=== PATIENT | female | born 1975 | race African-American/Black ===

== ENCOUNTER 2016-08-26 18:51 | Emergency (ER) | payer OTHER ==
[~2016-08-26] VITALS: Ht 157.5 cm; Wt 73.5 kg
--- NOTE | ~2016-08-26 | S ---
[facility] [address] [place] [address] SURGICAL PATH RPT PROCEDURE Name: KHADIJAH VELAZQUEZ Room #: DEP TENA Elena#: [id number] Admission: 08/26/16 Date of : 73 Discharge: 08/26/16 Report #: [id number] Path Case #: [id number] PATHOLOGY REPORT COLLECTION DATE: 08/26/2016 RECEIVED DATE: 08/27/2016 SUBMITTING PHYS: Dr. Carmel Ballesteros OTHER PHYS: SPECIMEN(S) RECEIVED: A.Products of conception * * * * * * * * * * * * FINAL DIAGNOSIS: Products of conception: - Hydropic immature chorionic villi in a background of fragments of decidualized tissue, consistent with products of conception. (IUV:csd; d/t: 08/28/2016) PATHOLOGIST: Jane David M.D. REPORT ELECTRONICALLY SIGNED BY: Jane David M.D. DATE/TIME: 08/28/2016 16:08 * * * * * * * * * * * * GROSS PATHOLOGY: The specimen is received in formalin labeled "Khadijah Velazquez," and additionally labeled on the requisition as, "possible products of conception". Received is a segment of dusky pink-patel to red-brown soft tissue measuring 4.3 x 2.8 x 2.5 cm in greatest dimensions. Spongiform tissue is not grossly distinct. or embryonic tissue is not grossly identified. The specimen is submitted representatively in cassettes A1 through A3. (CAA; 08/27/2016) CLINICAL HISTORY: Vaginal bleeding, assess for possible products of conception INITIAL CPT CODE(S): A; 63174 Professional services performed by [facility] at [facility] [address], [place] [address] Technical services performed by [facility] at [address] [place] [id number]. [facility] [address] [place] [address] SURGICAL PATH RPT PROCEDURE Name: KHADIJAH VELAZQUEZ Room #: DEP TENA Elena#: [id number] Admission: 08/26/16 Date of : 73 Discharge: 08/26/16 Report #: [id number] Path Case #: [id number] [facility] [address] [address] PHONE: [phone] DIRECTOR: Baldev Santoyo M.D. * * * END OF REPORT * * *
[~2016-08-26 18:51] MED LIST: ACYCLOVIR 200200 MG PO; ALDOMET250 MG PO; IRON325 PO; NORCO 5-325 TA1 EACH PO; PROVENTIL HFA6.7 G1 INH; PROZAC20 MG PO; TRINATE TABLET1 TAB PO; ZESTRIL10 MG
[2016-08-26 19:25] LABS: ABSOLUTE NEUTROPHILS 5.1 thou/uL (1.4-8.2); BASOPHILS 0.7 % (0.0-2.0); EOSINOPHILS 1.1 % (0.0-3.0); HEMATOCRIT 35.4 % (37.0-47.0); LYMPHOCYTES 28.2 % (24.0-44.0); MCHC 33.8 g/dL (28.0-37.0); MCV 85.6 fL (80.0-100.0); MONOCYTES 5.9 % (1.0-8.0); PLATELET COUNT 172 thou/uL (150-400); POLYS 64.1 % (36.0-66.0); RBC 4.13 mil/uL (4.20-5.00); RDW 14.3 % (10.5-14.5)
[2016-08-26 19:27] LABS: MANUAL DIFF NO
[2016-08-26 19:36] LABS: CALCIUM 8.9 mg/dL (8.5-10.1); CREATININE 0.7 mg/dL (0.6-1.0); POTASSIUM 3.5 mmol/L (3.5-5.1)
[2016-08-26 20:59] VITALS: BP 115/85
== END 2016-08-26 21:00 | disposition home or self-care (01) ==
LOC: ER 18:51
PROVIDERS: Emergency Medicine
DX: O20.0 Threatened abortion (principal); I10 Essential (primary) hypertension; Z3A.01 Less than 8 weeks gestation of pregnancy

== ENCOUNTER 2016-10-15 23:43 | Emergency (ER) | payer OTHER ==
[~2016-10-15] VITALS: Ht 157.5 cm; Wt 65.8 kg
[2016-10-16] MEDS ORDERED: XANAX 0.5 MG0.5 MG PO (00:33)
[2016-10-16] MEDS ORDERED: ALDOMET250 MG PO (00:34)
[2016-10-16] MEDS ORDERED: CELEXA10 MG PO (00:35)
[2016-10-16 02:14] VITALS: BP 117/72
== END 2016-10-16 02:15 | disposition home or self-care (01) ==
LOC: ER 23:43
DX: F41.0 Panic disorder [episodic paroxysmal anxiety] (principal); F32.9 Major depressive disorder, single episode, unspecified; F43.20 Adjustment disorder, unspecified; I10 Essential (primary) hypertension; F17.210 Nicotine dependence, cigarettes, uncomplicated

== ENCOUNTER 2016-11-20 10:22 | Emergency (ER) | payer OTHER ==
[~2016-11-20] VITALS: Ht 160 cm; Wt 60.3 kg
--- NOTE | ~2016-11-20 | EKG ---
[place] [address] [facility] [place] [address] ELECTROCARDIOGRAM REPORT Name: LILIAM KING Room #: DEP Kassy#: [id number] Admission: 11/20/16 Attend Phys: Discharge: 11/20/16 Date of : 73 Report #: [id number] THIS REPORT FOR: //name// [facility] ED Test Date: 2016-11-20 Test Time: 10:49:08 Pat Name: LILIAM KING Department: Room: Gender: F Medical Interpreter: Ethan PALACIOS : 1975 Requested By: Jose Ramon Varela Order Number: [id number] MD: Ruperto Bashir Measurements Intervals [place] Rate: 71 P: 66 SC: 135 QRS: 16 QRSD: 86 T: 12 QT: 390 QTc: 424 Interpretive Statements Sinus rhythm Probable left atrial enlargement Compared to ECG 01/22/2015 07:43:41 No significant changes Electronically Signed On 11-23-2016 21:57:58 CDT by Ruperto Bashir [email or web address] <ELECTRONICALLY SIGNED> By: Ruperto Bashir MD 11/23/16 2157 1049 1049 Ruperto Bashir MD /NHUNG
[~2016-11-20 10:22] MED LIST changes: +CELEXA10 MG PO; +XANAX 0.5 MG0.5 MG PO
[2016-11-20 10:53] LABS: URINE BILIRUBIN NEGATIVE (Negative); URINE BLOOD NEGATIVE (Negative); URINE COLOR YELLOW; URINE GLUCOSE-RANDOM* NEGATIVE (Negative); URINE KETONES NEGATIVE (Negative); URINE NITRITE NEGATIVE (Negative); URINE PROTEIN (DIPSTICK) NEGATIVE (Negative); URINE SPECIFIC GRAVITY 1.025 (1.003-1.035)
[2016-11-20] MEDS ORDERED: SEROQUEL 25 MG25 M1 PO (11:09)
[2016-11-20 11:13] LABS: ABSOLUTE NEUTROPHILS 4.9 thou/uL (1.4-8.2); BASOPHILS 0.6 % (0.0-2.0); EOSINOPHILS 0.6 % (0.0-3.0); HEMATOCRIT 35.8 % (37.0-47.0); LYMPHOCYTES 24.4 % (24.0-44.0); MCHC 33.5 g/dL (28.0-37.0); MCV 86.5 fL (80.0-100.0); MONOCYTES 4.3 % (1.0-8.0); PLATELET COUNT 173 thou/uL (150-400); POLYS 70.1 % (36.0-66.0); RBC 4.14 mil/uL (4.20-5.00); RDW 14.1 % (10.5-14.5)
[2016-11-20 11:14] LABS: MANUAL DIFF NO
[2016-11-20 11:15] VITALS: BP 123/83
[2016-11-20 11:20] LABS: ANION GAP 7 mmol/L (7-16); BUN 14 mg/dL (7-18); CALCIUM 9.2 mg/dL (8.5-10.1); CHLORIDE 108 mmol/L (98-107); CO2 29 mmol/L (21-32); CREATININE 0.8 mg/dL (0.6-1.0); GLUCOSE 86 mg/dL (74-106); POTASSIUM 3.8 mmol/L (3.5-5.1); SODIUM 144 mmol/L (136-145)
[2016-11-20 11:28] LABS: TROPONIN-I < 0.04 ng/mL (<0.04-0.07)
== END 2016-11-20 11:35 | disposition home or self-care (01) ==
LOC: ER 10:22
PROVIDERS: Nurse Practitioner
DX: R53.1 Weakness (principal); F41.9 Anxiety disorder, unspecified; I10 Essential (primary) hypertension; F17.210 Nicotine dependence, cigarettes, uncomplicated; F10.99 Alcohol use, unspecified with unspecified alcohol-induced disorder; Z98.890 Other specified postprocedural states

== ENCOUNTER 2017-06-01 11:11 | Emergency (ER) | payer OTHER ==
[~2017-06-01] VITALS: Ht 190.5 cm; Wt 59.0 kg
[~2017-06-01 11:11] MED LIST changes: +SEROQUEL 25 MG25 M1 PO
[2017-06-01 11:49] VITALS: BP 121/84
== END 2017-06-01 11:50 | disposition home or self-care (01) ==
LOC: ER 11:11
DX: R51 Headache (principal); F41.9 Anxiety disorder, unspecified; I10 Essential (primary) hypertension; F17.210 Nicotine dependence, cigarettes, uncomplicated

== ENCOUNTER 2017-07-01 10:34 | Emergency (ER) | payer OTHER ==
[~2017-07-01] VITALS: Ht 160 cm; Wt 56.7 kg
[2017-07-01 11:27] LABS: CALCIUM 8.8 mg/dL (8.5-10.1); CREATININE 0.7 mg/dL (0.6-1.0); POTASSIUM 3.5 mmol/L (3.5-5.1)
[2017-07-01 12:43] VITALS: BP 108/73
[2017-07-01] MEDS ORDERED: REGLAN 10 MG TA10 MG PO (12:43)
== END 2017-07-01 12:55 | disposition home or self-care (01) ==
LOC: ER 10:34
PROVIDERS: Emergency Medicine
DX: O26.891 Other specified pregnancy related conditions, first trimester (principal); Z3A.00 Weeks of gestation of pregnancy not specified; R11.2 Nausea with vomiting, unspecified

== ENCOUNTER 2017-12-03 09:36 | Emergency (ER) | payer OTHER ==
[~2017-12-03 09:36] MED LIST changes: +REGLAN 10 MG TA10 MG PO
== END 2017-12-03 19:18 | disposition still patient (30) ==
LOC: ER 09:36
DX: Z53.21 Procedure and treatment not carried out due to patient leaving prior to being seen by health care provider (principal)

== ENCOUNTER 2018-11-03 10:44 | Emergency (ER) | payer OTHER ==
[~2018-11-03] VITALS: Ht 157.5 cm; Wt 71.7 kg
[2018-11-03] MEDS ORDERED: HYDROCHLOROTHIA25 M2 PO (10:51)
[2018-11-03 11:33] LABS: ABSOLUTE NEUTROPHILS 3.9 thou/uL (1.4-8.2); BASOPHILS 1.8 % (0.0-2.0); EOSINOPHILS 0.7 % (0.0-3.0); HEMATOCRIT 37.5 % (37.0-47.0); HEMOGLOBIN 12.5 gm/dL (12.0-15.0); LYMPHOCYTES 25.9 % (24.0-44.0); MCH 28.9 pg (26.0-34.0); MCHC 33.2 g/dL (28.0-37.0); MONOCYTES 8.4 % (1.0-8.0); PLATELET COUNT 180 thou/uL (150-400); POLYS 63.2 % (36.0-66.0); RBC 4.32 mil/uL (4.20-5.00); RDW 14.1 % (10.5-14.5); WBC 6.1 thou/uL (4.0-11.0)
[2018-11-03 11:41] LABS: CALCIUM 8.7 mg/dL (8.5-10.1); CREATININE 0.9 mg/dL (0.6-1.0); POTASSIUM 3.7 mmol/L (3.5-5.1)
[2018-11-03 11:47] LABS: ALBUMIN 3.8 g/dL (3.4-5.0); TOTAL BILIRUBIN 0.2 mg/dL (<0.1-1.0); TOTAL PROTEIN 7.5 g/dL (6.4-8.2)
[2018-11-03 12:01] LABS: URINE BILIRUBIN NEGATIVE (Negative); URINE BLOOD NEGATIVE (Negative); URINE CLARITY CLEAR; URINE COLOR YELLOW; URINE GLUCOSE-RANDOM* NEGATIVE (Negative); URINE KETONES NEGATIVE (Negative); URINE LEUKOCYTES-REFLEX NEGATIVE (Negative); URINE NITRITE-REFLEX NEGATIVE (Negative); URINE PROTEIN (DIPSTICK) NEGATIVE (Negative); URINE UROBILINOGEN 0.2 E.U./dl (0.2-1.0)
[2018-11-03 12:17] LABS: AMP/METHAMP Negative (Negative); BARBITURATES Negative (Negative); BENZODIAZEPINES POSITIVE (Negative); COCAINE Negative (Negative); METHADONE Negative (Negative); OPIATES Negative (Negative); PCP Negative (Negative)
[2018-11-03 12:25] VITALS: BP 154/74
--- NOTE | 2018-11-04 07:29 | EKG ---
[place] [address] [employer] [place] [address] ELECTROCARDIOGRAM REPORT Name: LILIAM KING Room #: [facility] Kassy#: [id number] ������������������ Admission: 11/03/18 ������������������ Attend Phys: Discharge: 11/03/18 ������������������ Date of : 73 Report #: [id number] ����������������������������������������������������������������� [id number] THIS REPORT FOR: //name// [facility] ED Test Date: 2018-11-03 Test Time: 11:18:13 Pat Name: LILIAM KING Department: Room: Gender: F Copier Technician: FLORASri : 1975 Requested By: Ifeoma Johnson Order Number: [id number] MD: Sergio Yu Measurements Intervals [place] Rate: 72 P: 69 NV: 145 QRS: 23 QRSD: 92 T: 6 QT: 406 QTc: 445 Interpretive Statements Sinus rhythm No significant abnormality Compared to ECG 11/20/2016 10:49:08 QT interval has lengthened Electronically Signed On 11-04-2018 7:29:48 CDT by Sergio Yu [email or web address] ��������������������������������������������� <ELECTRONICALLY SIGNED> ���������������������������������������� By: Sergio Yu MD, [facility] ��������������������������������������������� 11/04/18 0729 1118 1118 Sergio Yu MD, FACC /EPI
== END 2018-11-03 12:25 | disposition home or self-care (01) ==
LOC: ER 10:44
PROVIDERS: Physician Assistant
DX: F41.9 Anxiety disorder, unspecified (principal); I10 Essential (primary) hypertension; F17.210 Nicotine dependence, cigarettes, uncomplicated; Z79.899 Other long term (current) drug therapy

== ENCOUNTER → 2019-01-14 | Outpatient (CLI) | payer OTHER ==
[~2019-01-14] MED LIST changes: +HYDROCHLOROTHIA25 M2 PO
== END ==
LOC: RAD 02:36
DX: Z12.31 Encounter for screening mammogram for malignant neoplasm of breast (principal)

== ENCOUNTER → 2020-02-23 | Outpatient (CLI) | payer OTHER | LOC: BC 02-15 11:33 | PROVIDERS: ATTEND Physician Assistant Medical | DX: Z12.31 Encounter for screening mammogram for malignant neoplasm of breast (principal) ==

== ENCOUNTER → 2021-05-31 | Outpatient (CLI) | payer OTHER | LOC: BC 03-01 14:37 | PROVIDERS: ATTEND Physician Assistant Medical | DX: Z12.31 Encounter for screening mammogram for malignant neoplasm of breast (principal) ==